=== PATIENT | female | born 1975 | race Caucasian/White ===

== ENCOUNTER → 2020-05-03 12:24 | Outpatient (CLI) | payer OTHER, SELFPAY ==
--- NOTE | 2020-05-03 | DI.MG.S_ITS ---
BILATERAL DIGITAL SCREENING MAMMOGRAM 3D/2D WITH CAD: 05/03/2020 CLINICAL: Routine screening. Comparison is made to exams dated: 02/20/2017 stereotactic biopsy and 02/08/2017 mammogram - outside location. The tissue of both breasts is extremely dense, which lowers the sensitivity of mammography. Current study was also evaluated with a Computer Aided Detection (CAD) system. There are calcifications in both breasts. There is a possible 0.6 cm oval equal density asymmetry in the left breast anterior depth inferior region seen on the mediolateral oblique view only. This is more prominent. No other significant masses, calcifications, or other findings are seen in either breast. IMPRESSION: INCOMPLETE: NEEDS ADDITIONAL IMAGING EVALUATION The possible 0.6 cm oval equal density asymmetry in the left breast is indeterminate. Additional views with possible ultrasound are recommended. This exam was interpreted at Station ID: [id number]. NOTE: For mammograms, a report in lay terms will be sent to the patient. Approximately 15% of breast malignancies will not be visualized mammographically. In the management of a palpable breast mass, a negative mammogram must not discourage biopsy of a clinically suspicious lesion. Electronically Signed By: Juan F Silva M.D. aty/:05/03/2020 16:12:39 letter sent: Additional Imaging Needed ACR BI-RADS Category 0: Incomplete [id number]
== END ==
PROVIDERS: PCP Student in an Organized Health Care Education/Training Program; Referring Provider Student in an Organized Health Care Education/Training Program; Visit Provider Student in an Organized Health Care Education/Training Program
DX: Z12.31 Encounter for screening mammogram for malignant neoplasm of breast (principal)
CPT/HCPCS: 77063; 77067

== ENCOUNTER → 2020-05-25 12:39 | Outpatient (CLI) | payer OTHER, SELFPAY ==
--- NOTE | 2020-05-25 | DI.US.S_ITS ---
ULTRASOUND OF LEFT BREAST: 05/25/2020 CLINICAL: Patient returns today to evaluate a focal asymmetry in the left breast. Comparison is made to exams dated: 05/25/2020 mammogram, 05/03/2020 mammogram - [facility], 02/20/2017 stereotactic biopsy, and 02/08/2017 mammogram - outside location. Doppler ultrasound of the left breast was performed. Vale scale images of the real-time examination were reviewed. No abnormality which corresponds with the mammographic abnormality is seen. IMPRESSION: BENIGN There is no sonographic evidence of malignancy. Return to annual mammogram screening schedule is recommended. This exam was interpreted at Station ID: [id number]. Electronically Signed By: Roderick Vogel acr/:05/25/2020 14:32:25 letter sent: Normal Exam Ultrasound BI-RADS: 2 Benign
--- NOTE | 2020-05-25 12:40 | DI.MG.S_ITS ---
UNILATERAL LEFT DIGITAL DIAGNOSTIC MAMMOGRAM 3D/2D WITH ADDITIONAL VIEWS: 05/25/2020 CLINICAL: Additional evaluation requested from prior study. Comparison is made to exams dated: 05/03/2020 mammogram - , 02/20/2017 stereotactic biopsy, and 02/08/2017 mammogram - outside location. The tissue of left breast is extremely dense, which lowers the sensitivity of mammography. There are benign appearing calcifications in the left breast. There is a 0.5 cm x 0.3 cm irregular low density asymmetry in the left breast middle depth central to the nipple seen on the mediolateral oblique view only 3 cm from the nipple. The benign 0.6 cm oval asymmetry in the left breast anterior depth inferior region seen on the mediolateral oblique view only is no longer seen. This is not seen in additional views. No other significant masses or calcifications are seen in the breast. IMPRESSION: INCOMPLETE: NEEDS ADDITIONAL IMAGING EVALUATION The 0.5 cm x 0.3 cm irregular low density asymmetry in the left breast middle depth central to the nipple seen on the mediolateral oblique view only is indeterminate. An ultrasound is recommended. This exam was interpreted at Station ID: [id number]. NOTE: For mammograms, a report in lay terms will be sent to the patient. Approximately 15% of breast malignancies will not be visualized mammographically. In the management of a palpable breast mass, a negative mammogram must not discourage biopsy of a clinically suspicious lesion. Electronically Signed By: Roderick Vogel acr/:05/25/2020 13:29:58 letter sent: Normal Exam ACR BI-RADS Category 0: Incomplete [id number]
== END ==
PROVIDERS: PCP Student in an Organized Health Care Education/Training Program; Referring Provider Student in an Organized Health Care Education/Training Program; Visit Provider Student in an Organized Health Care Education/Training Program
DX: R92.8 Other abnormal and inconclusive findings on diagnostic imaging of breast (principal); N64.89 Other specified disorders of breast
CPT/HCPCS: 76642; 77065; G0279